=== PATIENT | male | born 1980 | race Caucasian/White ===

== ENCOUNTER 2022-11-24 15:57 | Emergency (ER) | payer MEDICAID ==
[2022-11-24] MEDS ORDERED: Lidocaine 1% 10 ML MDV INJECT ONE (17:02)
[2022-11-24] MEDS ORDERED: Diphtheria,Pertussis(Acell),Tetanus Vaccine 0.5 ML Syringe IM ONE (17:10)
[2022-11-24] MEDS ORDERED: Bacitracin Oint 1 GM U/D Packet TOP ONE (17:45)
== END 2022-11-24 17:55 | disposition home or self-care (01) ==
LOC: JP.ED 15:57
DX: S61.411A Laceration without foreign body of right hand, initial encounter (principal); Z88.0 Allergy status to penicillin; Z23 Encounter for immunization; Z87.891 Personal history of nicotine dependence; W26.8XXA Contact with other sharp object(s), not elsewhere classified, initial encounter
CPT/HCPCS: 12002; 90471; 90715; 99282